=== PATIENT | male | born 1985 | race Caucasian/White ===

== ENCOUNTER 2017-07-06 19:09 | Emergency (ER) | payer MEDICAID ==
[2017-07-06] MEDS ORDERED: Lidocaine 2% Viscous Solution 15 ML Cup PO ONE ×2 (19:10→19:52)
--- NOTE | 2017-07-06 20:01 | EDM.PDOC ---
ED HPI GENERAL MEDICAL PROBLEM - General Chief Complaint: ENT Problem Stated Complaint: TOOTH INFECTED [id number] Time Seen by Provider: 07/06/17 19:50 Source of Information: Reports: Patient History Limitations: Reports: No Limitations - History of Present Illness INITIAL COMMENTS - FREE TEXT/NARRATIVE: This 32 yo male patient reports to the ED with swelling of the left side of his face. The patient reports that he has had several fillings that have fallen out in the past 6 months, but noticed the swelling in the left jaw for the past 2 days. The patient was seen in the Clinic yesterday and started on Amoxicillin as well as Tramadol. The patient reports he was talking to a friend that got put on several antibiotics over the course before the swelling got better. The patient reports he took the antibiotics yesterday as prescribed. Onset: Gradual Duration: Day(s):, Constant, Getting Worse Location: Reports: Face (right sided facial swelling) Quality: Reports: Ache, Sharp Severity: Moderate Improves with: Reports: None Worsens with: Reports: None Associated Symptoms: Reports: No Other Symptoms Treatments HERB GROWER: Reports: NSAIDS, Other Medication(s) (Amoxicillin and Tramadol) Right Lower Face Pain Score (Numeric/FACES): 8 - Related Data Allergies Allergy/AdvReac Type Severity Reaction Status Date / Time No Known Allergies Allergy Verified 07/06/17 19:20 Home Meds: Home Meds Amoxicillin/Clavulanate K [Augmentin 875-125 MG] 1 tab PO BID 07/06/17 [History] traMADol HCl [Tramadol HCl] 1 tab PO ASDIRECTED PRN 07/06/17 [History] Past Medical History - Past Health History Medical/Surgical History: Denies Medical/Surgical History Psychiatric History: Reports: Anxiety Social & Family History - Tobacco Use Smoking Status *Q: Current Every Day Smoker Years of Tobacco use: 14 Packs/Tins Daily: 0.5 Used Tobacco, but Quit: No - Caffeine Use Caffeine Use: Reports: Soda - Recreational Drug Use Recreational Drug Use: Yes Recreational Drug Type: Reports: Marijuana/Hashish Recreational Drug Use Frequency: Not Used In Over 6 Months ED ROS ENT - Review of Systems Review Of Systems: ROS reveals no pertinent complaints other than HPI. ED EXAM, ENT - Physical Exam Exam: See Below Exam Limited By: No Limitations General Appearance: Alert, WD/WN, Moderate Distress Eye Exam: Bilateral Eye: EOMI, Normal Inspection, PERRL Ears: Normal External Exam, Normal Canal, Hearing Grossly Normal, Normal TMs Nose: Normal Inspection, Normal Mucousa, No Blood Mouth/Throat: Dental Pain, Dental Tenderness, Other (swelling to the right side of face) Head: Atraumatic, Normocephalic Neck: Normal Inspection, Supple, Non-Tender, Full Range of Motion Respiratory/Chest: No Respiratory Distress, Lungs Clear, Normal Breath Sounds, No Accessory Muscle Use, Chest Non-Tender Cardiovascular: Normal Peripheral Pulses, Regular Rate, Rhythm, No Edema, No Gallop, No JVD, No Murmur, No Rub GI/Abdominal: Normal Bowel Sounds, Soft, Non-Tender, No Organomegaly, No Distention, No Abnormal Bruit, No Mass (Male) Exam: Deferred Rectal (Males) Exam: Deferred Back: Normal Inspection, Full Range of Motion Extremities: Normal Inspection, Normal Range of Motion, Non-Tender, No Pedal Edema, Normal Capillary Refill Neurological: Alert, Oriented, CN II-XII Intact, Normal Cognition, Normal Gait, Normal Reflexes, No Motor/Sensory Deficits Psychiatric: Normal Affect, Normal Mood Skin: Warm, Dry, Intact, Normal Color, No Rash Lymphatic: No Adenopathy Course - Vital Signs Last Recorded V/S: Last Vital Signs Temp 37.6 C 07/06/17 19:20 Pulse 94 07/06/17 19:20 Resp 19 07/06/17 19:20 BP 144/94 H 07/06/17 19:20 Pulse Ox 98 07/06/17 19:20 - Orders/Labs/Meds Meds: Medications Discontinued Medications Generic Name Dose Route Start Last Admin Trade Name Melida PRN Reason Stop Dose Admin Lidocaine HCl 15 ml 07/06/17 19:52 07/06/17 20:05 Xylocaine 2% Viscous PO 07/06/17 19:53 15 ml ONETIME ONE Administration Departure - Departure Time of Disposition: 19:55 Disposition: Home, Self-Care 01 Condition: Fair Clinical Impression: Dental abscess, Dental caries - Discharge Information Instructions: Dental Abscess, [id number] Forms: ED Department Discharge Care Plan Goals: The patient was advised of the examination results during the visit. The patient was given a dose of Viscous Lidocaine (2%) while in the ED. The patient was discharged with Viscous Lidocaine (2%) #15 mL to apply 5-10 mL to the affected area every 6 hours as needed and a script for Viscous Lidocaine (2%) # 100 mL to apply 5-10 mL to a cottonball applied to the affected area. The patient should visit a dentist for treatment for the multiple dental problems. If the patient has any additional symptoms or concerns, the patient should follow-up with his primary care facility or return to the emergency department.
[2017-07-06] MEDS ORDERED: Lidocaine 2% Viscous Solution 15 ML Cup ONE (20:06)
== END 2017-07-06 20:09 | disposition home or self-care (01) ==
LOC: DL.ED 19:09
DX: K04.7 Periapical abscess without sinus (principal); K02.9 Dental caries, unspecified; F17.210 Nicotine dependence, cigarettes, uncomplicated
CPT/HCPCS: 99282; A9270

== ENCOUNTER 2017-10-06 01:30 | Emergency (ER) | payer MEDICAID ==
[2017-10-06 01:57] LABS: ANION GAP 12.8; CHLORIDE,CL 107 mmol/L (101-111); SODIUM,NA 140 mmol/L (135-145)
--- NOTE | 2017-10-06 02:24 | EDM.PDOC ---
ED HPI GENERAL MEDICAL PROBLEM - General Chief Complaint: Drug or Alcohol Abuse Stated Complaint: AMBULANCE-INTOXICATED Time Seen by Provider: 10/06/17 01:30 Source of Information: Reports: EMS History Limitations: Reports: Intoxication - History of Present Illness INITIAL COMMENTS - FREE TEXT/NARRATIVE: ED via [facility] intoxicated reported to have fallen off bar stool in local bar then fell again outside. Awake on arrival, speech slurred, Strong odor ETOH. No obvious signs of trauma. Moving all extremities. Mother notified and arrives . States patient last seen leaving from Family gathering at 10pm. States patient does drink, unsure of amounts or frequency. - Related Data Allergies Allergy/AdvReac Type Severity Reaction Status Date / Time No Known Allergies Allergy Verified 07/06/17 19:20 Home Meds: Home Meds Amoxicillin/Clavulanate K [Augmentin 875-125 MG] 1 tab PO BID 07/06/17 [History] traMADol HCl [Tramadol HCl] 1 tab PO ASDIRECTED PRN 07/06/17 [History] Past Medical History - Past Health History Medical/Surgical History: Denies Medical/Surgical History Psychiatric History: Reports: Anxiety Social & Family History - Caffeine Use Caffeine Use: Reports: Soda ED ROS GENERAL - Review of Systems Review Of Systems: Unable To Obtain - Physical Exam Exam: See Below Exam Limited By: No Limitations General Appearance: Lethargic Eye Exam: Bilateral Eye: EOMI, PERRL Ears: Normal External Exam Nose: Normal Inspection Throat/Mouth: Normal Inspection Head Exam: Atraumatic, Normocephalic. No: Scalp Lacerations, Scalp Swelling, Facial Abrasions, Facial Swelling Neck: Normal Inspection, Full Range of Motion. No: Tender Lateral, Tender Midline Respiratory/Chest: No Respiratory Distress, Lungs Clear, Normal Breath Sounds Cardiovascular: Normal Peripheral Pulses, Regular Rate, Rhythm GI/Abdominal: Normal Bowel Sounds, Soft, Non-Tender Neuro Exam (Abbreviated): Oriented, Slow to Respond (intoxicated, peech slurred , ) Back Exam: No: Paraspinal Tenderness, Vertebral Tenderness Extremities: Normal Inspection, Normal Range of Motion Psychiatric: Other (intoxicated, redirectable ) Skin Exam: Warm, Dry, Intact, Normal Color, No Rash Course - Vital Signs Last Recorded V/S: Last Vital Signs Temp 98.1 F 10/06/17 03:30 Pulse 80 10/06/17 03:30 Resp 18 10/06/17 03:30 BP 111/59 L 10/06/17 03:30 Pulse Ox 93 L 10/06/17 03:30 - Orders/Labs/Meds Orders: Active Orders 24 hr Category Date Time Status Cervical Spine wo Cont [CT] Urgent Exams 10/06/17 01:38 Taken Head wo Cont [CT] Urgent Exams 10/06/17 01:38 Taken DRUG SCREEN URINE BIORAD [URCHEM] Stat Lab 10/06/17 01:39 Ordered Labs: Laboratory Tests 10/06/17 10/06/17 10/06/17 Range/Units 01:30 01:30 03:35 WBC 7.8 (5.0-10.0) 10^3/uL RBC 4.61 (4.6-6.2) 10^6/uL Hgb 15.2 (14.0-18.0) g/dL Hct 44.7 (40.0-54.0) % MCV 97.0 (80-100) fL MCH 33.0 (27.0-34.0) pg MCHC 34.0 (33.0-35.0) g/dL Plt Count 188 (150-450) 10^3/uL Neut % (Auto) 50.5 (42.2-75.2) % Lymph % (Auto) 41.1 (20.5-50.1) % Irwin % (Auto) 7.2 (2-8) % Eos % (Auto) 0.8 L (1.0-3.0) % Baso % (Auto) 0.4 (0.0-1.0) % Sodium 140 (135-145) mmol/L Potassium 3.8 (3.6-5.0) mmol/L Chloride 107 (101-111) mmol/L Carbon Dioxide 24.0 (21.0-31.0) mmol/L Anion Gap 12.8 BUN 14 (7-18) mg/dL Creatinine 1.2 (0.6-1.3) mg/dL Est Cr Clr Drug Dosing 85.50 mL/min Estimated GFR (MDRD) > 60 BUN/Creatinine Ratio 11.66 Glucose 121 H (74-105) mg/dL Calcium 8.4 (8.4-10.2) mg/dl Total Bilirubin 0.5 (0.2-1.0) mg/dL AST 25 (10-42) IU/L ALT 29 (10-60) IU/L Alkaline Phosphatase 56 (42-121) IU/L Total Protein 6.8 (6.7-8.2) g/dl Albumin 4.2 (3.2-5.5) g/dl Globulin 2.6 Albumin/Globulin Ratio 1.62 Ethyl Alcohol 396 365 mg/dL - Re-Assessments/Exams Free Text/Narrative Re-Assessment/Exam: 10/06/17 02:[address], Up to BR, refuses to use urinal. Gait unsteady. 10/06/17 0345 Discharged home ambulatory with mother Departure - Departure Time of Disposition: 03:45 Disposition: Home, Self-Care 01 Condition: Good Clinical Impression: Alcohol abuse Alcohol intoxication Qualifiers: Complication of substance-induced condition: uncomplicated Qualified Code(s): F10.920 - Alcohol use, unspecified with intoxication, uncomplicated Fall Qualifiers: Encounter type: initial encounter Qualified Code(s): W19.XXXA - Unspecified fall, initial encounter - Discharge Information *PRESCRIPTION DRUG MONITORING PROGRAM REVIEWED*: No Instructions: Concussion, Adult, [id number], Alcohol Intoxication, Easy-to- Read Referrals: PCP,Unobtain [Primary Care Provider] - Forms: ED Department Discharge Additional Instructions: Limit alcohol use follow up as needed stay with family tonight head injury instructions - My Orders Last 24 Hours: My Active Orders 10/06/17 01:38 Cervical Spine wo Cont [CT] Urgent Head wo Cont [CT] Urgent 10/06/17 01:39 DRUG SCREEN URINE BIORAD [URCHEM] Stat - Assessment/Plan Last 24 Hours: My Active Orders 10/06/17 01:38 Cervical Spine wo Cont [CT] Urgent Head wo Cont [CT] Urgent 10/06/17 01:39 DRUG SCREEN URINE BIORAD [URCHEM] Stat
== END 2017-10-06 03:45 | disposition home or self-care (01) ==
LOC: DL.ED 01:30
DX: F10.129 Alcohol abuse with intoxication, unspecified (principal); Z79.899 Other long term (current) drug therapy; Y90.8 Blood alcohol level of 240 mg/100 ml or more; W08.XXXA Fall from other furniture, initial encounter
CPT/HCPCS: 36415; 70450; 72125; 80053; 85025; 99285; G0480

== ENCOUNTER 2019-04-02 05:33 | Day surgery (SDC) | payer MEDICAID ==
[2019-04-02] MEDS ORDERED: Midazolam 1 MG/ML 2 ML SDV IV ONE ×3 (05:34→06:25)
[2019-04-02] MEDS ORDERED: fentaNYL 100 MCG/2 ML SDV IV ONE ×3 (05:34→06:24)
[2019-04-02] MEDS ORDERED: Dextrose 5%-0.45% NaCl 1,000 ML IV SCH (06:00)
[2019-04-02] MEDS ORDERED: Midazolam 1 MG/ML 2 ML SDV ONE (06:10)
[2019-04-02] MEDS ORDERED: fentaNYL 100 MCG/2 ML SDV ONE (06:10)
--- NOTE | 2019-04-02 08:10 | PN ---
DATE: 04/02/2019 The patient mentions of taking food last at 10:30 p.m. EGD attempted, had considerable gag reflex and pulled the scope out. A large amount of food material, some solid in consistency vomited. So, the procedure discontinued. PLAN: Chart reviewed. CT enterography this week. We will reschedule EGD next week; clear liquid diet the day before and n.p.o. after 6:00 p.m. We will have EGD done under deep sedation provided by [facility]. Pros and cons discussed with him, and he is acceptable. [facility] [place] /[id number]
== END 2019-04-02 08:31 | disposition home or self-care (01) ==
LOC: DL.ENDO 05:33
PROVIDERS: ATTEND Internal Medicine Gastroenterology
DX: R10.13 Epigastric pain (principal); J06.9 Acute upper respiratory infection, unspecified; F17.210 Nicotine dependence, cigarettes, uncomplicated; Z87.11 Personal history of peptic ulcer disease; Z87.09 Personal history of other diseases of the respiratory system; Z98.890 Other specified postprocedural states
CPT/HCPCS: 43235; J2250; J3010; J7042

== ENCOUNTER 2019-04-08 06:31 | Day surgery (SDC) | payer MEDICAID ==
[~2019-04-08 06:31] MED LIST: Dextrose 5%-0.45% NaCl 1,000 ML IV SCH; Sodium Chloride 0.9% 10 ML Syringe FLUSH PRN
[2019-04-08] MEDS ORDERED: Propofol 200 MG/20 ML SDV IV ONE (06:32)
--- NOTE | 2019-04-08 12:57 | OR ---
DATE: 04/08/2019 PROCEDURES: Esophagogastroduodenoscopy, narrow-band imaging, and multiple pinch biopsies. INSTRUMENT USED: GIF-HQ190 Olympus video panendoscope. PREMEDICATIONS: Provided by [facility]. INDICATION: The patient with persistent heartburn, upper abdominal pain as well as dyspepsia and bloating, unexplained and not responsive to medical measures. Abdominal CT in the form of thick duodenal wall. Esophagogastroduodenoscopy is performed for detection of any active erosive lesions, Bianchi esophagus and/or malignancy also under consideration, H pylori status to be determined, small bowel biopsies to be obtained for celiac disease if indicated, endoscopic hemostasis therapy if needed. PROCEDURE IN DETAIL: The scope was passed with ease. Adequate visualization of the esophagus was made from proximal to distal areas. No upper esophageal lesions identified. No distal esophageal stricture. No uphill or downhill esophageal varices. No Mona-Silvestre tear. Grade A erosive changes were noted by Independence criteria. No esophageal polyp or tumor mass identified. Z-line was seen at around 40 cm distal to oral verge. Configuration consistent with grade 1 by ZAP classification. No proximal gastric varices noted. Gastric fundus examination by retroflexion showed no polypoid lesions. No gastric ulcer, malignant mass, or vascular ectasia identified. Duodenal bulb showed no ulcer. Visualized second part of the duodenum was unremarkable. Multiple pinch biopsies, 4 in number, were taken from different areas of the second part of the duodenum and tissues were also obtained from the duodenal bulb at 9 and 12 o'clock positions and sent for any histopathologic evidence of celiac disease. Multiple pinch biopsies were also taken from the gastric, antrum, and proximal body and sent for PyloriTek test for H pylori and histopathology. No bleeding was noted from any of the visualized areas at the completion of examination. Photographs were taken of the duodenal bulb, gastric antrum, fundus, and distal esophagus. NBI views were obtained of the second part of duodenum. IMPRESSION: Grade A gastroesophageal reflux disease. The patient tolerated the procedure well. [facility] /[id number]
== END 2019-04-08 09:34 | disposition home or self-care (01) ==
LOC: DL.ENDO 06:31
PROVIDERS: ATTEND Internal Medicine Gastroenterology
DX: K21.9 Gastro-esophageal reflux disease without esophagitis (principal); K29.80 Duodenitis without bleeding; K31.89 Other diseases of stomach and duodenum; K22.10 Ulcer of esophagus without bleeding; F32.9 Major depressive disorder, single episode, unspecified; F41.9 Anxiety disorder, unspecified; F17.210 Nicotine dependence, cigarettes, uncomplicated; Z87.11 Personal history of peptic ulcer disease; Z98.890 Other specified postprocedural states
CPT/HCPCS: 43239; 87077; J2704; J7042

== ENCOUNTER 2019-04-30 06:07 | Day surgery (SDC) | payer MEDICAID ==
[2019-04-30] MEDS ORDERED: Midazolam 1 MG/ML 2 ML SDV IV ONE ×7 (06:08→07:04)
[2019-04-30] MEDS ORDERED: fentaNYL 100 MCG/2 ML SDV IV ONE ×5 (06:08→07:06)
[2019-04-30] MEDS ORDERED: Midazolam 1 MG/ML 2 ML SDV ONE (06:10)
[2019-04-30] MEDS ORDERED: fentaNYL 100 MCG/2 ML SDV ONE (06:10)
--- NOTE | 2019-04-30 11:10 | OR ---
DATE: 04/30/2019 PROCEDURE: Total colonoscopy. INSTRUMENT USED: PCF-H190DL Olympus video colonoscope. PREMEDICATIONS: Fentanyl 125 mcg intravenous, Versed 4 mg intravenous. The procedure was done under pulse oximetry, BP recording, and quality assurance monitor. INDICATION: The patient with rectal bleeding. Colonoscopic examination is done for detection of any polypoid lesions and removal, endoscopic hemostasis therapy if needed. DESCRIPTION OF PROCEDURE: Initial rectal exam showed some anal sphincter spasm. Rigid anoscopy showed small internal hemorrhoids without bleeding from them. The colonoscope was passed with ease. Diverticulum was noted at the distal descending colon, some deformity noted around the area. The scope was passed with ease up to the ileocecal area. Photographs were taken of the normal- appearing cecum identified by landmarks of appendiceal orifice and double-bulged ileocecal folds. No bleeding was noted from any of the visualized areas at the commencement of the examination. The bowel preparation was found to be adequate, Ashland scale 2 in all the regions, total score 6. No stricture. No vascular ectasia. No large isolated ulcerations seen. No evidence of diffuse inflammatory bowel disease in the form of friability, contact bleeding, or ulcerations. No polyp or tumor mass identified. Probing the proximal sides of folds and flexures using adequate distention and clearing up the stool material, withdrawal of the scope was made, cecum to rectum time over 6 minutes. No bleeding was noted from any of the visualized areas at the completion of examination. IMPRESSION: 1. Internal hemorrhoids. 2. Diverticulosis. The patient tolerated the procedure well. [facility] /[id number]
== END 2019-04-30 09:20 | disposition home or self-care (01) ==
LOC: DL.ENDO 06:07
PROVIDERS: ATTEND Internal Medicine Gastroenterology
DX: K57.31 Diverticulosis of large intestine without perforation or abscess with bleeding (principal); K64.8 Other hemorrhoids; K21.9 Gastro-esophageal reflux disease without esophagitis; F41.1 Generalized anxiety disorder; F12.90 Cannabis use, unspecified, uncomplicated; F17.210 Nicotine dependence, cigarettes, uncomplicated
CPT/HCPCS: 45378; J2250; J3010; J7042; G0121

== ENCOUNTER 2021-02-02 05:39 | Emergency (ER) | payer MEDICAID ==
[2021-02-02] MEDS ORDERED: Clindamycin HCl 150 MG Cap PO ONE (06:15)
--- NOTE | 2021-02-02 06:21 | EDM.PDOC ---
ED HPI GENERAL MEDICAL PROBLEM - General Chief Complaint: General Stated Complaint: INFECTION IN UPPER TEETH Time Seen by Provider: 02/02/21 06:05 Source of Information: Reports: Patient, RN, RN Notes Reviewed History Limitations: Reports: No Limitations - History of Present Illness INITIAL COMMENTS - FREE TEXT/NARRATIVE: Edilberto is a 35 y/o male who presents to the ED via personal vehicle with complaints of dental pain. The patient reports his symptoms began four days ago in tooth #10 and have progressively worsened in that time. He has not been to a dentist as he lacks dental insurance. He attests to hot and cold sensitivity as well as swelling to his left face. He denies fever, shaking chills, throat tightness, drooling, difficulty swallowing, palpitations, nausea, vomiting, or diarrhea. He has not taken any medications or performed any supportive cares. - Related Data Allergies Allergy/AdvReac Type Severity Reaction Status Date / Time No Known Allergies Allergy Verified 04/30/19 06:19 Home Meds: Home Meds Fluticasone Propionate [Flonase] 1 - 2 spray NASBOTH ASDIRECTED 04/01/19 [History] Omeprazole 20 mg PO DAILY 04/29/19 [History] Past Medical History - Past Health History Medical/Surgical History: Denies Medical/Surgical History HEENT History: Reports: Sinusitis Cardiovascular History: Reports: None Respiratory History: Reports: Other (See Below) Other Respiratory History: recent URI Gastrointestinal History: Reports: GERD, PUD Genitourinary History: Reports: None Musculoskeletal History: Reports: Fracture Other Musculoskeletal History: FRACTURE OF ANKLE, TRIMALLEOLAR, RIGHT, CLOSED Neurological History: Reports: None Psychiatric History: Reports: Anxiety Endocrine/Metabolic History: Reports: None Hematologic History: Reports: None Immunologic History: Reports: None Oncologic (Cancer) History: Reports: None Dermatologic History: Reports: None - Infectious Disease History Infectious Disease History: Reports: None - Past Surgical History Head Surgeries/Procedures: Reports: None HEENT Surgical History: Reports: None Cardiovascular Surgical History: Reports: None Respiratory Surgical History: Reports: None GI Surgical History: Reports: EGD Male Surgical History: Reports: None Endocrine Surgical History: Reports: None Neurological Surgical History: Reports: None Musculoskeletal Surgical History: Reports: ORIF Oncologic Surgical History: Reports: None Dermatological Surgical History: Reports: None Social & Family History - Family History Family Medical History: No Pertinent Family History - Tobacco Use Tobacco Use Status *Q: Current Every Day Tobacco User Years of Tobacco use: 10 Packs/Tins Daily: 1 - Caffeine Use Caffeine Use: Reports: Soda Caffeine Use Comment: 4-6 can daily ED ROS GENERAL - Review of Systems Review Of Systems: Comprehensive ROS is negative, except as noted in HPI. ED EXAM, GENERAL - Physical Exam Exam: See Below Exam Limited By: No Limitations General Appearance: Alert, No Apparent Distress Eye Exam: Bilateral Eye: EOMI, Normal Inspection, PERRL (3mm) Ears: Normal External Exam, Normal Canal, Hearing Grossly Normal, Normal TMs Ear Exam: Bilateral Ear: Auricle Normal, Canal Normal, TM normal Nose: Normal Inspection, Normal Mucosa, No Blood Throat/Mouth: Normal Voice, No Airway Compromise. No: Normal Teeth (Dental pain to #10) Head: Normocephalic, Facial Swelling (To left upper lip, extending into left inferior orbit), Facial Tenderness (To left upper lip ) Neck: Normal Inspection, Supple, Non-Tender, Full Range of Motion. No: Lymphadenopathy (L), Lymphadenopathy (R), Tender Lateral, Tender Midline Respiratory/Chest: No Respiratory Distress, Lungs Clear, Normal Breath Sounds, No Accessory Muscle Use, Chest Non-Tender. No: Crackles, Rales, Rhonchi, Wheezing, Stridor Cardiovascular: Normal Peripheral Pulses, Regular Rate, Rhythm, No Edema, No Gallop, No JVD, No Murmur, No Rub Peripheral Pulses: 2+: Radial (L), Radial (R) GI/Abdominal: Normal Bowel Sounds, Soft, Non-Tender, No Distention, No Abnormal Bruit, No Mass, Pelvis Stable (Male) Exam: Deferred Rectal (Males) Exam: Deferred Back Exam: Normal Inspection, Full Range of Motion Extremities: Normal Inspection, Normal Range of Motion, Normal Capillary Refill Neurological: Alert, Oriented, CN II-XII Intact, Normal Cognition, Normal Gait, No Motor/Sensory Deficits Psychiatric: Normal Affect, Normal Mood Skin Exam: Warm, Dry, Intact, Normal Color, No Rash. No: Cyanosis, Jaundice, Mottled, Pallor Course - Vital Signs Last Recorded V/S: Last Vital Signs Temp 97.7 F 02/02/21 06:07 Pulse 72 02/02/21 06:07 Resp 18 02/02/21 06:07 BP 138/94 H 02/02/21 06:07 Pulse Ox 95 02/02/21 06:07 - Orders/Labs/Meds Meds: Medications Discontinued Medications Generic Name Dose Route Start Last Admin Trade Name Melida PRN Reason Stop Dose Admin Clindamycin HCl 300 mg 02/02/21 06:15 02/02/21 06:23 Clindamycin Hcl 150 Mg Cap PO 02/02/21 06:16 300 mg ONETIME ONE Administration - Re-Assessments/Exams Free Text/Narrative Re-Assessment/Exam: 02/02/21 Findings of examination reviewed with patient. Will treat dental infection with clindamycin. Supportive cares for dental pain discussed. Patient instructed to follow up with primary dentist in 3-4 regarding todays visit. Red flag signs and symptoms which would warrant immediate reevaluation reviewed. Patient verbalized understanding and agreement with the plan of care. Departure - Departure Time of Disposition: 06:27 Disposition: Home, Self-Care 01 Condition: Good Clinical Impression: Dental infection, Dental caries - Discharge Information *PRESCRIPTION DRUG MONITORING PROGRAM REVIEWED*: Not Applicable *COPY OF PRESCRIPTION DRUG MONITORING REPORT IN PATIENT LUCY: Not Applicable Instructions: Dental Caries, Adult Forms: ED Department Discharge Additional Instructions: Rx: clindamycin 300mg (#40) 1.) Start your antibiotics this morning and continue until all pills are gone, even as symptoms improve. 2.) Follow up with your primary dentist by early next week. 3.) You may take ibuprofen (Advil/Motrin) 400mg every six hours, as pain and swelling persist. You may also take acetaminophen (Tylenol) 650-1000mg every six hours, as pain persists. You may stagger these medications so you are taking a dose of either every three hours. 4.) You may apply cold compresses to the area as pain and swelling persist, 20 minutes every hour. 5.) Avoid overly hot or cold foods should you experience sensitivity. Eat soft foods to avoid dental pain.
== END 2021-02-02 06:33 | disposition home or self-care (01) ==
LOC: DL.ED 05:39
DX: K04.7 Periapical abscess without sinus (principal); K02.9 Dental caries, unspecified; K21.9 Gastro-esophageal reflux disease without esophagitis; Z79.899 Other long term (current) drug therapy
CPT/HCPCS: 99282; A9270-GY

== ENCOUNTER 2021-02-02 16:22 | Emergency (ER) | payer MEDICAID | END 2021-02-02 20:48 | disposition left against medical advice (07) | LOC: DL.ED 16:22 | DX: Z53.21 Procedure and treatment not carried out due to patient leaving prior to being seen by health care provider (principal) ==